=== PATIENT | female | born 1980 | race Caucasian/White ===

== ENCOUNTER 2016-12-01 20:30 | Emergency (ER) | payer BC, MEDICAID ==
[2016-12-01 20:41] VITALS: BP 127/87
--- NOTE | 2016-12-01 20:57 | ERNOTE ---
ENT HPI Date of Service: 12/01/16 Presenting Symptoms: other - sore throat Source: patient Exam Limitations: no limitations - Immun/Allergies/Home Medications Immunizations: IMMUNIZATION HX Immunizations Up to Date No History of Influenza Vaccine No Hx Pneumococcal Vaccination No Allergies/Adverse Reactions: Allergies Allergy/AdvReac Type Severity Reaction Status Date / Time No Known Allergies Allergy Verified 12/01/16 20:41 Home Medications: HOME MEDICATIONS ALPRAZolam [Xanax] 0.5 mg PO TID PRN 11/04/15 [Last Taken Unknown] Levothyroxine Sodium [Synthroid] 75 mcg PO DAILY 11/04/15 [Last Taken Unknown] - History of Present Illness Narrative: Swollen Red sore throat for the past 2-3 days. Some nasal congestion, no cough Severity: Present: moderate ENT Location: Present: throat Prearrival Treatment: Present: no prearrival treatment Modifying Factors - Improves: Reports: nothing Modifying Factors - Worsens: Reports: nothing Associated Symptoms - ENT: Reports: nasal congestion/drainage. Denies: fever Review of Systems - Review of Systems Constitutional: Present: no symptoms reported EYE: Present: no symptoms reported ENT: Present: See HPI Respiratory: Present: no symptoms reported Cardiology: Present: no symptoms reported Gastrointestinal/Abdominal: Present: no symptoms reported Genitourinary: Present: no symptoms reported Musculoskeletal: Present: no symptoms reported Skin: Present: no symptoms reported Neurological: Present: no symptoms reported Endocrine: Present: no symptoms reported Hematologic/Lymphatic: Present: no symptoms reported Psych: Present: no symptoms reported - Patient's Past Medical History Patient History - Medical: Anxiety, GERD, Hypothyroidism, Migraines Patient History - Cardiac/Respiratory: No pertinent hx Patient History - Cancer: Skin Patient History - Surgical Procedures: Cholecystectomy, , Hysterectomy , Tubal Ligation, Other Patient History - Other: None LMP (females 10-50): hysterectomy - Social History Living Situations: home Abuse History: No History of abuse Psych History: Hx of Anxiety Smoking Status: Current every day smoker Alcohol Use: rarely Drug Use: none - Immunizations Immunizations Up to Date: No Hx Pneumococcal Vaccination: No History of Influenza Vaccine: No Physical Exam - Physical Exam General Appearance: Present: alert, mild distress Eye Exam: Normal inspection: bilateral, PERRL: bilateral, EOMI: bilateral Ears, Nose, Throat: Present: pharyngeal erythema, pharyngeal swelling Neck: Present: lymphadenopathy (R), lymphadenopathy (L) Respiratory: Present: no respiratory distress, normal breath sounds Cardiovascular/Chest: Present: regular rate, rhythm, no murmur Gastrointestinal/Abdominal: Present: nontender Rectal Exam: Present: deferred Back Exam: Present: normal inspection Extremity Exam: Present: normal inspection Neurological Exam: Present: alert, oriented, normal mood/affect Skin Exam: Present: normal color, warm/dry Lymphatic Exam: Present: other - cervical ED Progress - Results and Orders Patient's Lab Results:: I have reviewed the patient's lab results. - negative strep screen - Vital Signs Vital Signs: Vital Signs 12/01/16 20:36 Temperature 36.5 C Pulse Rate 94 Respiratory 18 Rate Blood Pressure 127/87 O2 Sat by Pulse 97 Oximetry - Progress/Reassessment Chief Complaint: Sore Throat Plan - Plan Plan: This is a non-strep pharyngitis likely viral and antibiotics are not indicated. This was discussed with the patient Departure Clinical Impression: Pharyngitis - Departure Disposition: Home self-care Condition: Fair Instructions: Pharyngitis, [id number] Additional Instructions: Warm salt water gargles and Chloraseptic or Cepacol for discomfort and over-the- counter decongestants as needed Referrals: Yvonne Barr MD [Primary Care Provider] -
--- OUTSIDE RECORDS SUMMARY | 2016-12-01 21:21 | XMS REPORT | Continuity of Care Document ---
:1980 Demographics Phone Unavailable Preferred Language Unknown Marital Status Unknown Adventism Affiliation Unknown Race Unknown Ethnic Group Unknown Author Organization [facility] ([facility]) [place] [address] Phone [phone] Care Team Providers Name Role Phone Unavailable Primary Care Provider Unavailable Source Comments This disclosure is being made pursuant to the Care Everywhere program, applicable federal and state laws, and may not contain all informaitonavailable regarding this patient.[facility] ([facility]) Active Allergies and Adverse Reactions Not on File Current Medications Not on file Active Problems Not on file Social History Tobacco Use Types Packs/Day Years Used Date Never Assessed Plan of Care Health Maintenance Due Date Last Done Comments Hepatitis B Vaccine (1 of 3 - Primary Series) 1980 Tdap Vaccine 1989 Lipid Disorder Screening 02/27/1996 MMR Vaccine 02/27/1996 Td Vaccine 02/27/1996 Cervical Cancer Screening 02/27/2008 Influenza Vaccine: Seasonal (#1) 04/10/2016 Results from Last 3 Months Not on file
== END 2016-12-01 21:03 | disposition home or self-care (01) ==
LOC: ER 20:30
DX: J02.9 Acute pharyngitis, unspecified (principal); F17.210 Nicotine dependence, cigarettes, uncomplicated; E03.9 Hypothyroidism, unspecified; F41.9 Anxiety disorder, unspecified

== ENCOUNTER 2017-09-30 19:21 | Emergency (ER) | payer BC ==
[2017-09-30 19:31] VITALS: BP 124/69
--- NOTE | 2017-09-30 19:34 | ERNOTE ---
Date of Service: 09/30/17 Time Seen by Provider: 09/30/17 19:32 Stated Complaint: COUGH Presenting Symptoms:: cough, sore throat, runny nose Source: patient Exam Limitations: no limitations Immunizations: IMMUNIZATION HX Immunizations Up to Date Yes History of Influenza Vaccine No Hx Pneumococcal Vaccination No Allergies/Adverse Reactions: Allergies No Known Allergies Allergy (Verified 09/30/17 19:25) Home Medications: HOME MEDICATIONS ALPRAZolam [Xanax] 0.5 mg PO TID PRN 11/04/15 [Last Taken Unknown] Levothyroxine Sodium [Synthroid] 75 mcg PO DAILY 11/04/15 [Last Taken Unknown] Enalapril Maleate [Vasotec] 5 mg PO DAILY #30 tablet 09/30/17 [Last Taken Unknown] - History of Present Ilness Narrative: Pt is a 37 year old female who presents with complaints of a cough that began last night and has progressively been getting worse. She has two kids at home who have been sick with similar symptoms. She endorses nasal congestion, chest congestion, and sore throat. She denies fevers, n/v/d, malaise,. She was just prescribed last week an OLIVER-I and Beta Reji for what she describes as a LBBB and SVT for which she has had a cardiac workup for. At home she has been taking mucinex, robitussin, and cough drops for without relief. She did not receive her flu vaccine and is an active smoker. Date (Duration): 09/30/17 Time (Timing): 19:00 Timing: constant, getting worse Severity: moderate Frequency/Possible Cause: Reports: no prior episodes, illness exposure, smoke exposure. Denies: occasional episodes, frequent episodes, chronic episodes, allergen exposure, foreign travel Modifying Factors - Improves: Reports: nothing Modifying Factors - Worsens: Reports: cold, coughing, deep breath, lying down Associated Symptoms: Reports: cough, nasal congestion, nasal drainage, headache , sore throat. Denies: shortness of breath, wheezing, dizziness, lightheadedness, earache, muscle aches, fever/chills Review of Systems - Review of Systems Constitutional: Present: malaise. Absent: fever, chills, diaphoresis, weakness , fatigue EYE: Present: no symptoms reported ENT: Present: nose congestion, nasal drainage, sore throat. Absent: ear pain, throat swelling Respiratory: Present: cough. Absent: shortness of breath, orthopnea, wheezing Cardiology: Absent: chest pain, palpitations, syncope, edema, claudication Gastrointestinal/Abdominal: Present: no symptoms reported Genitourinary: Present: no symptoms reported Musculoskeletal: Present: no symptoms reported Skin: Present: no symptoms reported Neurological: Present: no symptoms reported Endocrine: Present: no symptoms reported Hematologic/Lymphatic: Present: no symptoms reported Psych: Present: no symptoms reported - Patient's Past Medical History Patient History - Medical: Anxiety, GERD, Hypothyroidism, Migraines Patient History - Cardiac/Respiratory: Other - LBBB, SVT Patient History - Cancer: Skin Patient History - Surgical Procedures: Cholecystectomy, , Hysterectomy , Tubal Ligation, Other Patient History - Other: None LMP (females 10-50): other - Social History Living Situations: home Abuse History: No History of abuse Psych History: Hx of Anxiety Smoking Status: Current every day smoker Have you smoked in the past 12 months: Yes Do you dip or chew tobacco: No Alcohol Use: none Drug Use: none - Immunizations Immunizations Up to Date: Yes Hx Pneumococcal Vaccination: No History of Influenza Vaccine: No Physical Exam - Physical Exam General Appearance: Present: wd/wn, alert, no apparent distress Head Exam: Present: normal inspection Eye Exam: Normal inspection: bilateral Ears, Nose, Throat: Present: nasal congestion, pharyngeal erythema, tonsillar swelling. Absent: sinus pain/drainage Neck: Present: normal inspection, nontender, lymphadenopathy (R). Absent: lymphadenopathy (L) Respiratory: Present: no respiratory distress, no accessory muscle use, chest nontender, wheezing - left upper posterior Cardiovascular/Chest: Present: regular rate, rhythm, no murmur, normal peripheral pulses Gastrointestinal/Abdominal: Present: normal bowel sounds, nontender, nondistended, soft, no organomegaly Back Exam: Present: normal inspection, normal range of motion, no CVA tenderness , no vertebral tenderness Extremity Exam: Present: normal inspection, non-tender, normal range of motion, no edema Neurological Exam: Present: alert, oriented, normal mood/affect, no motor/ sensory deficits Skin Exam: Present: normal color, warm/dry ED Progress - Results and Orders Patient's Lab Results:: I have reviewed the patient's lab results. - Vital Signs Patient's Vital Signs:: I have reviewed the patient's vital signs. Vital Signs: Vital Signs 09/30/17 19:26 Temperature 37.1 C Pulse Rate 104 H Respiratory 20 Rate Blood Pressure 124/69 O2 Sat by Pulse 97 Oximetry - Progress/Reassessment Chief Complaint: Cough Plan - Plan Plan: Pt reports new onset cough in the setting of OLIVER-I, as her radiology reports are without evidence of any acute cardiopulmonary findings, she has not been febrile, and strep/flu are negative, I suspect the new medication is the culprit. She will be instructed to follow up with her photographic developer and printer to ensure he is ok with the medication change. She reports being "on the lowest" dose possible once a day, therefore I will place her on 5mg daily with the above directions. Departure Clinical Impression: Cough due to OLIVER inhibitor - Departure Disposition: Home Follow Up Needed Condition: Good Additional Instructions: Stop taking your Lisinopril as this is most likely the etiology of your cough. Call your Manufacturing Technology Analyst Sunday to make sure he is aware of the medication change and ok with it. Referrals: Yvonne Barr MD [Primary Care Provider] - Prescriptions: Enalapril Maleate [Vasotec] 5 mg PO DAILY #30 tablet
== END 2017-09-30 20:12 | disposition home or self-care (01) ==
LOC: ER 19:21
DX: R05 Cough (principal); I47.1 Supraventricular tachycardia; F17.200 Nicotine dependence, unspecified, uncomplicated

== ENCOUNTER 2017-10-14 12:58 | Emergency (ER) | payer BC ==
[2017-10-14 13:32] VITALS: BP 132/67
--- NOTE | 2017-10-14 13:40 | ERNOTE ---
Date of Service: 10/14/17 Time Seen by Provider: 10/14/17 13:05 Stated Complaint: COUGH, BODY ACHES Presenting Symptoms:: cough Source: patient Exam Limitations: no limitations Immunizations: IMMUNIZATION HX Immunizations Up to Date Yes History of Influenza Vaccine No Hx Pneumococcal Vaccination No Allergies/Adverse Reactions: Allergies No Known Allergies Allergy (Verified 10/14/17 13:13) Home Medications: HOME MEDICATIONS ALPRAZolam [Xanax] 0.5 mg PO TID PRN 11/04/15 [Last Taken Unknown] Levothyroxine Sodium [Synthroid] 75 mcg PO DAILY 11/04/15 [Last Taken Unknown] Albuterol Sulfate [Proair Hfa] 2 puff IH Q4H PRN #1 inhaler 10/14/17 [Last Taken Unknown] Azithromycin [Zithromax] 500 mg PO NOW #6 tab 10/14/17 [Last Taken Unknown] Lisinopril [Zestril] 2.5 mg PO DAILY 10/14/17 [Last Taken Unknown] Metoprolol Succinate 25 mg PO DAILY 10/14/17 [Last Taken Unknown] - History of Present Ilness Narrative: Patient presents for cough. She has been having a cough for over a week. Initially this was dry. She had been around many sick people at work. It has now lasted for over a week and now bringing up colored sputum, having green sinus drainage and worsening Sx. Muscle aches. Has felt feverish. CP and back pain with cough. No calf pain or leg swelling. Timing: getting worse Severity: moderate Frequency/Possible Cause: Reports: other - URI Sx Modifying Factors - Improves: Reports: nothing Modifying Factors - Worsens: Reports: nothing Associated Symptoms: Reports: cough, muscle aches. Denies: shortness of breath , headache, sore throat Prior Treatment: Reports: recently seen Review of Systems - Review of Systems Constitutional: Present: other - has felt feverish EYE: Present: no symptoms reported ENT: Present: nose congestion, nasal drainage. Absent: sore throat Respiratory: Present: cough Cardiology: Present: See HPI Gastrointestinal/Abdominal: Absent: abdominal pain Genitourinary: Absent: dysuria Musculoskeletal: Present: other - myalgias Skin: Absent: rash Neurological: Absent: weakness - Patient's Past Medical History Patient History - Medical: Anxiety, GERD, Hypothyroidism, Migraines Patient History - Cardiac/Respiratory: Other Patient History - Cancer: Skin Patient History - Surgical Procedures: Cholecystectomy, , Hysterectomy , Tubal Ligation, Other Patient History - Other: None LMP (females 10-50): hysterectomy - Social History Living Situations: spouse Abuse History: No History of abuse Psych History: Hx of Anxiety Smoking Status: Never smoker Have you smoked in the past 12 months: No Do you dip or chew tobacco: No Alcohol Use: none Drug Use: none - Immunizations Immunizations Up to Date: Yes Hx Pneumococcal Vaccination: No History of Influenza Vaccine: No Physical Exam - Physical Exam General Appearance: Present: alert, no apparent distress Head Exam: Present: normal inspection, no evidence of injury Eye Exam: Normal inspection: bilateral, PERRL: bilateral Ears, Nose, Throat: Present: nasal congestion, sinus pain/drainage, normal pharynx, other - sinus drainage noted down the back of her throat. No evidence of EDUCATION AND DEVELOPMENT MANAGER, RPA or epiglottitis.. Absent: pharyngeal erythema, pharyngeal swelling Neck: Present: normal inspection, nontender, supple Respiratory: Present: no respiratory distress, normal breath sounds, no accessory muscle use, lungs clear, chest tenderness, other - cough noted Cardiovascular/Chest: Present: regular rate, rhythm, normal peripheral pulses Gastrointestinal/Abdominal: Present: normal bowel sounds, nontender, nondistended, soft Back Exam: Present: normal range of motion Extremity Exam: Present: normal inspection, no edema, other - no findings of DVT Neurological Exam: Present: alert, no motor/sensory deficits Skin Exam: Present: normal color, warm/dry ED Progress - Vital Signs Patient's Vital Signs:: I have reviewed the patient's vital signs. Vital Signs: Vital Signs 10/14/17 10/14/17 13:01 13:21 Temperature 36.6 C Pulse Rate 90 75 Respiratory 16 12 Rate Blood Pressure 144/80 132/79 O2 Sat by Pulse 97 92 Oximetry - Progress/Reassessment Chief Complaint: Cough Progress Note-Subjective: 10/14/17 13:38 I offered the patient a full evaluation with CXR, labs, ekg, etc, she declines this and wishes just to be treated. She understands risks and benefits. Clinically this is a sinusitis/bronchitis. Nothing clinically to suggest ACS, PE, aortic dissection or other clear acute life threat. She understands she may return at any time to have all the testing done that I have offered her. I discussed warning signs and reasons to return as well as the need for close f/u. Departure Clinical Impression: Bronchitis - Departure Disposition: Home self-care Condition: Stable Instructions: Acute Bronchitis Additional Instructions: rest. Fluids. Medications as directed. Return if you change your mind about having any of the testing we discussed, if you develop fever, trouble breathing or if your condition worsens or changes in any way. Follow-up with your doctor in 3 days for a re-check. Referrals: Yvonne Barr MD [Primary Care Provider] - Prescriptions: Albuterol Sulfate [Proair Hfa] 2 puff IH Q4H PRN #1 inhaler PRN Reason: Shortness Of Breath Azithromycin [Zithromax] 500 mg PO NOW #6 tab
== END 2017-10-14 13:38 | disposition home or self-care (01) ==
LOC: ER 12:58
DX: J40 Bronchitis, not specified as acute or chronic (principal); E03.9 Hypothyroidism, unspecified; F41.9 Anxiety disorder, unspecified; Z85.828 Personal history of other malignant neoplasm of skin